=== PATIENT | female | born 1950 | race Caucasian/White ===

== ENCOUNTER → 2018-07-21 23:26 | Emergency (ER) | payer SELFPAY ==
--- NOTE | 2018-07-22 00:21 | ED ---
HPI Chest Pain - HPI Summary HPI Summary: This patient is a 68 year old F presenting to [facility] accompanied by her son acting as welder gas automatic, with a chief complaint of non-exertional chest pain described as heaviness beginning roughly an hour ago lasting roughly 45 minutes. Reports nausea and elevated BP reading at home. Son states she appeared erythematous with heavy breathing. Son reports history of similar symptoms but less severe. She has had previous workup by medical billing associate in [facility]. All symptoms are currently resolved. - History of Current Complaint Chief Complaint: EDChestPainROMI Time Seen by Provider: 07/22/18 00:17 Hx Obtained From: Family/Tube Filler, Jute Bag Sewer Onset/Duration: Started Hours Ago Timing: Lasting Minutes Initial Severity: Severe Current Severity: None Pain Intensity: 0 Pain Scale Used: 0-10 Numeric Chest Pain Radiates: No Character: Heaviness Alleviating Factor(s): Spontaneous Resolution Associated Signs and Symptoms: Positive: Other: - nausea Related History: Similar Episode/Dx as: - Allergy/Home Medications Allergies/Adverse Reactions: Allergies Allergy/AdvReac Type Severity Reaction Status Date / Time No Known Allergies Allergy Verified 07/21/18 23:32 PMH/Surg Hx/FS Hx/Imm Hx Cardiovascular History: Reports: Hx Angina, Hx Hypertension Respiratory History: Denies: Hx Chronic Obstructive Pulmonary Disease (COPD) - Surgical History Surgery Procedure, Year, and Place: none Infectious Disease History: No Infectious Disease History: Denies: Traveled Outside the [place] in Last 30 Days - Family History Known Family History: Positive: Hypertension - Social History Lives: Alone Hx Substance Use: No Substance Use Type: Reports: None Hx Tobacco Use: No Smoking Status (MU): Never Smoked Tobacco Review of Systems Positive: Chest Pain Positive: Nausea All Other Systems Reviewed And Are Negative: Yes Physical Exam - Summary Physical Exam Summary: Appearance: Well-appearing, Well-nourished, lying in bed comfortably Skin: Warm, dry, no obvious rash Eyes: sclera anicteric, no conjunctival pallor ENT: mucous membranes moist, pharynx appears normal Neck: Supple, nontender Respiratory: Clear to auscultation, no signs of respiratory distress Cardiovascular: Normal S1, S2. No murmurs. Normal distal pulses in tibial and radial bilaterally. Abdomen: Soft, nontender, normal active bowel sounds present Musculoskeletal: Normal, Strength/ROM Intact Neurological: A&Ox3, awake and alert, mentation is normal, speech is fluent and appropriate Psychiatric: affect is normal, does not appear anxious or depressed Triage Information Reviewed: Yes Vital Signs On Initial Exam: Initial Vitals Temp Pulse Resp BP Pulse Ox 98.3 F 85 20 150/86 100 07/21/18 23:30 07/21/18 23:30 07/21/18 23:30 07/21/18 23:30 07/21/18 23:30 Vital Signs Reviewed: Yes Diagnostics - Vital Signs Vital Signs Temp Pulse Resp BP Pulse Ox 07/21/18 23:30 98.3 F 85 20 150/86 100 - Laboratory Result Diagrams: 07/22/18 00:31 07/22/18 00:33 Lab Statement: Any lab studies that have been ordered have been reviewed, and results considered in the medical decision making process. - EKG 2350 Cardiac Rate: NL - 69 BPM EKG Rhythm: Sinus Rhythm Summary of EKG Findings: normal EKG Chest Pain Course/Dx - Course Course Of Treatment: This is a generally healthy 68-year-old woman with a history of transient chest pain that is felt to be atypical for ischemia. By history, she has had a cardiac evaluation in the last couple of years which was said to be negative. Her EKG, troponins, and physical exam are similarly unremarkable. I believe she is low risk for MACE and is stable for discharge and follow-up with the [facility]. - Diagnoses Provider Diagnoses: Atypical chest pain Discharge - Sign-Out/Discharge Documenting (check all that apply): Patient Departure - Discharge Plan Condition: Good Disposition: HOME Patient Education Materials: Chest Pain (ED) Referrals: [facility] [Outside] - 3 Days - Billing Disposition and Condition Condition: GOOD Disposition: Home - Attestation Statements Document Initiated by Scribe: Yes Documenting Scribe: Krystal Lacey Provider For Whom Levi is Documenting (Include Credential): Jd Tenorio MD Scribe Attestation: Krystal Asencio, scribed for Jd Tenorio MD on 07/22/18 at 0513. Scribe Documentation Reviewed: Yes Provider Attestation: The documentation as recorded by the Krystal robles accurately reflects the service I personally performed and the decisions made by me, Jd Tenorio MD Status of Scribe Document: Viewed
[2018-07-22 00:40] LABS: ABS Basophils 0.1 10^3/ul (0-0.2); ABS Eosinophils 0.1 10^3/ul (0-0.6); ABS Lymphocytes 1.3 10^3/ul (1.0-4.8); ABS Monocytes 0.4 10^3/ul (0-0.8); ABS Nucleated RBC 0 10^3/ul; Eosinophil % 1.3 %; Hematocrit 34 % (35-47); Hemoglobin 11.6 g/dl (12.0-16.0); Mean Corpuscular HGB Conc 34 g/dl (31-36); Mean Corpuscular Hemoglobin 30 pg (27-31); Mean Corpuscular Volume 87 fL (80-97); Nucleated Red Blood Cells % 0; Platelet Count 134 10^3/ul (150-450); Red Blood Count 3.93 10^6/ul (4.00-5.40); Red Cell Distribution Width 14 % (10.5-15); White Blood Count 5.8 10^3/ul (3.5-10.8)
[2018-07-22 00:56] LABS: Albumin/Globulin Ratio 1.3 (1-3); Calcium 9.1 mg/dL (8.6-10.3); EGFR Non-African American 77.3 (>60); Globulin 3.1 g/dL (2-4); Potassium 3.6 mmol/L (3.5-5.0); Total Bilirubin 0.3 mg/dL (0.2-1.0); Total Protein 7.1 g/dL (6.4-8.9)
[2018-07-22 03:19] VITALS: BP 112/67
== END | disposition home or self-care (01) ==
LOC: EDBD → ED 23:26
DX: R07.89 Other chest pain (principal); R11.0 Nausea; I10 Essential (primary) hypertension
CPT/HCPCS: 36415; 80053; 84484; 85025; 93005; 99283

== ENCOUNTER 2024-03-24 11:44 | Inpatient (IN) ==
[2024-03-24 14:38] LABS: ABS Basophils 0.1 10^3/uL (0.0-0.1); ABS Lymphocytes 1.4 10^3/uL (1.0-4.8); ABS Monocytes 0.9 10^3/uL (0.0-0.9); ABS Neutrophils 11.2 10^3/uL (1.5-7.6); ABS Nucleated RBC 0.01 10^3/ul; Eosinophil % 0.1 %; Hematocrit 35.9 % (35-45); Lymphocyte % 10.4 %; Mean Corpuscular Hemoglobin 29.2 pg (27-33); Mean Corpuscular Hgb Conc 33.5 g/dL (31-36); Mean Corpuscular Volume 87.1 fL (80-97); Mean Platelet Volume 9.4 fL (7.5-11.2); Nucleated Red Blood Cells % 0.1 %/100WBC (0.0-0.8); Platelet Count 122 10^3/uL (150-450); Red Blood Count 4.12 10^6/uL (3.63-4.92); Red Cell Distribution Width 13.9 % (12-17); White Blood Count 13.7 10^3/uL (3.8-11.8)
[2024-03-24 14:44] LABS: INR 1.32 (0.85-1.14)
[2024-03-24 15:36] LABS: Albumin/Globulin Ratio 1.3 (1-3); Calcium 8.7 mg/dL (8.6-10.3); Creatinine, Serum 0.92 mg/dL (0.51-0.95); Globulin 3.2 g/dL (2-4); Total Bilirubin 1.3 mg/dL (0.2-1.0); Total Protein 7.2 g/dL (6.4-8.9); eGFR CKD-EPI 66.6 (>60)
[2024-03-24] MEDS: Iohexol 350 (CONTRAST) 500 ML MDV IV ONE (15:55)
[2024-03-24] MEDS: Piperacillin/Tazobac 3.375 BAG 3.375 GM/100 ML BAG IV ONE (17:25)
[2024-03-24] MEDS: HYDROmorphone 1 MG/1 ML SYRINGE IV SLOW PU PRN (19:44)
[2024-03-24] MEDS: Ondansetron 4 mg VIAL 2 MG/ML 2 ml VIAL IV PRN (19:44)
[2024-03-24] MEDS: NS 0.9% 1000 ml BAG 1,000 ML IV SCH (19:45)
[2024-03-24] MEDS: Piperacillin/Tazobac 3.375 BAG 3.375 GM/100 ML BAG IV SCH (22:23)
[2024-03-25 08:02] LABS: ABS Basophils 0.1 10^3/uL (0.0-0.1); ABS Monocytes 0.7 10^3/uL (0.0-0.9); Eosinophil % 0.2 %; Hematocrit 31.6 % (35-45); Hemoglobin 10.6 g/dL (11.5-14.3); Mean Corpuscular Hemoglobin 29.4 pg (27-33); Mean Corpuscular Hgb Conc 33.5 g/dL (31-36); Mean Corpuscular Volume 87.8 fL (80-97); Mean Platelet Volume 9.5 fL (7.5-11.2); Platelet Count 105 10^3/uL (150-450); Red Cell Distribution Width 14.4 % (12-17); White Blood Count 9.8 10^3/uL (3.8-11.8)
[2024-03-25 09:02] LABS: Calcium 7.9 mg/dL (8.6-10.3); Creatinine, Serum 0.78 mg/dL (0.51-0.95); Potassium 3.8 mmol/L (3.5-5.0); eGFR CKD-EPI 81.2 (>60)
[2024-03-25] MEDS: Piperacillin/Tazobac 3.375 BAG 3.375 GM/100 ML BAG IV SCH (14:34)
[2024-03-26] MEDS ORDERED: Acetaminophen IV 1 GM/100ML 1,000 MG/100 ML BAG IV PRN (11:32)
[2024-03-26] MEDS: fentaNYL 100 mcg/2 ml 50 MCG/ML VIAL ONE (15:59)
[2024-03-26] MEDS: Iohexol 350 (CONTRAST) 500 ML MDV IV ONE (15:59)
[2024-03-27 09:50] VITALS: BP 138/70
== END 2024-03-27 14:07 | disposition home or self-care (01) | DRG 399 ==
LOC: EDHOLD 11:44 → ED 11:44 → OBSVTOIN 17:40 → SSU 03-25 08:48
PROVIDERS: ADMIT Surgery; ATTEND Surgery